=== PATIENT | female | born 2005 | race Caucasian/White ===

== ENCOUNTER → 2024-08-10 16:17 | Outpatient (CLI) | payer OTHER, MEDICAID, SELFPAY | PROVIDERS: Visit Provider Obstetrics & Gynecology | DX: N89.8 Other specified noninflammatory disorders of vagina (principal) | CPT/HCPCS: 86787 ==

== ENCOUNTER → 2024-08-11 08:39 | Outpatient (CLI) | payer OTHER, MEDICAID, SELFPAY ==
[2024-08-12 13:11] LABS: Candida species Negative (Negative); Gardnerella vaginalis Negative (Negative); Trichomoas vaginalis Negative (Negative)
== END ==
PROVIDERS: Visit Provider Obstetrics & Gynecology
DX: N89.8 Other specified noninflammatory disorders of vagina (principal)
CPT/HCPCS: 87480; 87510; 87660